=== PATIENT | female | born 1955 | race Caucasian/White ===

== ENCOUNTER 2023-09-22 08:00 | Outpatient (RCR) | payer MEDICARE, SELFPAY ==
--- NOTE | 2023-07-06 16:19 | PTOPEVAL1 ---
Assessment and note entered by Concepcion Mcfarland, PT Evaluation Information Assessment Status Evaluation Diagnosis pain in thoracic spine pain in lumbopelvic area weakness, abnormal posture Subjective Information Pt reports pain comes and goes. Currently has no pain but last week had pain bad enough felt like she was going to pass out. Has been coming and going last couple of years but has been increasing in intensity. No trend in what causes increase pain. States recliner is very soft and has the worst time with getting out of this. 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 When does have the pain, will get up and walk around, states stopped using the heating pad Takes Tylenol Is on blood thinners so cannot take ibuprofen because is on blood thinners Reported Pain Level Pain Score 0: Self Report Assessment PT Clinical Summary Pt presents with c/o right sided low back pain and pain in thoracolumbar area. Evaluation shows (+) RLE length discrepancy, (+) VIGNESH testing for R sacroilliac joint, significant deficits in strength in lumbopelvic core musculature, abnormal gait, abnormal postures and pelvic alignment likely causing related thoracolumbar pain further up the kinematic chain. Pt has been educated on evaluation findings, and provided information for DME to allow improved foundational support through the pelvis. Pt will benefit from physical therpay to monitory pelvic alignment, address strength deficits, and pain. Plan of Care Interventions Electrical Stimulation,Hot Pack/Cold Pack,Manual Therapy,Neuro Re-education,Patient/Caregiver Educati,Therapeutic Activities,Therapeutic Exercise,Ultrasound PT Services Indicated Yes Treatment Frequency and 1-2x weekly x 10 visits Duration These treatments will address the objective and functional deficits as defined above. The patient will be advanced safely and appropriately in order for the patient to progress towards his/her prior level of function. Additional exercises will be introduced and as well as a comprehensive home exercise program upon discharge, if needed, ?to ensure c
--- NOTE | 2023-07-06 16:19 | OPREHPOC ---
Outpatient Therapy Plan of Care This is a Multidisciplinary Plan of Care that may contain components documented by all disciplines (PT, OT, and ST.) PT Goal 1 Goal Pt will be independent in HEP Pt will verbalize understanding of diagnosis and prognosis Target Visit 5 PT Problem 2 PT Problem #2 Pain PT Goal 1 Goal Pt will report greatest pain level at 3/10 or less to improve ADLs and activities Target Visit 10 PT Goal 2 Goal Pt will report resolution of pain to return to PLOF Target Visit 16 PT Problem 3 PT Problem #3 Impaired Strength PT Goal 1 Goal Pt will demo strength of 4/5 in all tested planes Target Visit 10 PT Goal 2 Goal Pt will demo core strength of 3+/5 of the TRAM to improve lumbopelvic stability Target Visit 16
--- NOTE | 2023-08-04 08:37 | PTOPPROG ---
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 Pain is staying low, happening less often. Getting in and out of the recliner is doing ok, but sometimes has to just stand for a minute to get started Self Perceived improvement: 90% but still discomfort in low back and right hip Reports doesn't feel like she needs pain medication as often Assessment PT Clinical Summary Pt has attended therapy consistently for her back pain. She reports today feeling 90% improved overall, highest pain level has reduced from 8/10 to 4/10. Today she demo's appropriate pelvic alignment without heel lift, mildly increased strength, improved ROM. Pt cont to have stability and strength goals to meet thus would benefit from physical therapy at a decreased frequency to focus on this and empower patient to maintain strength and ability independently upon completion of therapy Plan of Care Interventions Electrical Stimulation,Hot Pack/Cold Pack,Manual Therapy,Neuro Re-education,Patient/Caregiver Educati,Therapeutic Activities,Therapeutic Exercise,Ultrasound PT Services Indicated Yes Treatment Frequency and 1x weekly x 6 visits Duration These treatments will address the objective and functional deficits as defined above. The patient will be advanced safely and appropriately in order for the patient to progress towards his/her prior level of function. Additional exercises will be introduced and as well as a comprehensive home exercise program upon discharge, if needed, ?to ensure carryover of functional gains achieved in the clinic. This treatment plan has been reviewed and agreement upon by the patient.
--- NOTE | 2023-09-23 16:44 | PTOPDC ---
Assessment and note entered by Concepcion Mcfarland, PT Assessment Status Discharge Diagnosis pain in thoracic spine Subjective Information Pt reports classifies her progress in weeks if she can get by without the hot water bottle or complaining a lot. States when feels uncomfortable in bed, walks around a little and then feels better. The exercises help give relief also. Improvement: maintained 90% pain has greatly improved. Reported Pain Level Pain Score 2: Self Report Assessment PT Clinical Summary Pt has attended therapy consistently for back pain initially in the thoracic spine which was found to be curvature related to alignment of pelvis and lower in the kinematic chain. This last phase of therapy pt focused on strengthenign and stability. She feels she has done well with therapy, stating she feels 90% improved overall. She has met part of her therapy related goals and progressed on the remainder of goals. She has been provided her updated HEP, and understands when to return to PCP should she need therpay in the future. Thus patient is being discharged due to completion of her program. Plan of Care PT Services Indicated No
== END 2023-09-27 11:22 | disposition home or self-care (01) ==
LOC: ANHHIPT 08:00
PROVIDERS: PCP Physician Assistant Medical; Visit Provider Nurse Practitioner Family
DX: M54.6 Pain in thoracic spine (principal)
CPT/HCPCS: 97014; 97110; 97112; 97140; 97162; 97530; 97750; G0283